=== PATIENT | female | born 1965 | race Caucasian/White ===

== ENCOUNTER 2022-02-15 13:36 | Emergency (ER) | payer BC ==
[~2022-02-15] VITALS: Ht 165.1 cm; Wt 59.4 kg
[2022-02-15 13:45] VITALS: BP 144/69
--- NOTE | 2022-02-15 13:50 | NUR ---
Patient ambulated to bed 09 with steady/even gait
--- NOTE | 2022-02-15 13:53 | NUR ---
56 y/o F c/o 5th digit pain, right foot s/p getting caught in a chair 30mins ago. Patient states 11/05, dull/constant, non-radiating pain. (+) numbness to 5th digit. Pedal pulses in tact. No meds taken. Bed locked in lowest position, side rails x 1. pmh: none meds: none allergy: penicillin
--- NOTE | 2022-02-15 14:16 | NUR ---
[facility] at bedside
[2022-02-15 15:41] VITALS: BP 121/85
[2022-02-15] MEDS ORDERED: LIDOCAINE MPF 1% 10 MG/ML VIAL INJ ONE (15:50)
--- NOTE | 2022-02-15 15:55 | NUR ---
CARITO Barrett is at bedside
[2022-02-15] MEDS ORDERED: NAPR-54 PO (16:00)
--- NOTE | 2022-02-15 16:15 | NUR ---
Patient discharged with v/s stable. Written and verbal after care instructions given and explained for Toe Fracture. Patient alert, oriented and verbalized understanding of instructions. Ambulatory with steady gait. All questions addressed prior to discharge. ID band removed. Patient advised to follow up with PMD. Rx of Naproxen given. Patient educated on indication of medication including possible reaction and side effects. Opportunity to ask questions provided and answered.
== END 2022-02-15 16:15 | disposition home or self-care (01) ==
LOC: MED 13:36
DX: S92.511A Displaced fracture of proximal phalanx of right lesser toe(s), initial encounter for closed fracture (principal); Z88.0 Allergy status to penicillin; Z79.899 Other long term (current) drug therapy; W22.03XA Walked into furniture, initial encounter; Y93.89 Activity, other specified; Y92.89 Other specified places as the place of occurrence of the external cause; Y99.8 Other external cause status
CPT/HCPCS: 73660; 99283; J2001; Q0092